=== PATIENT | female | born 1940 | race Caucasian/White ===

== ENCOUNTER 2016-09-20 15:01 | Inpatient (IN) | payer OTHER, MEDICARE ==
[~2016-09-20] VITALS: Ht 160 cm; Wt 70.5 kg
[2016-09-20 15:05] VITALS: BP_SYST 104
[2016-09-20 15:34] LABS: BASOPHILS % (AUTO) 0.3 % (0.0-2.0); EOSINOPHILS % (AUTO) 0.3 % (0.0-4.0); HEMATOCRIT 42.2 % (36-48); HEMOGLOBIN 13.9 g/dL (12.0-16.0); LYMPHOCYTES # (AUTO) 3.5 K/uL (1.0-5.5); LYMPHOCYTES % (AUTO) 26.9 % (20.5-51.5); MEAN CORPUSCULAR HEMOGLOBIN 29 pg (27-31); MEAN CORPUSCULAR HGB CONC 33 % (32-36); MEAN CORPUSCULAR VOLUME 87 fL (79.0-98.0); MONOCYTES # (AUTO) 0.9 K/uL (0.0-1.0); MONOCYTES % (AUTO) 6.8 % (1.7-9.3); NEUTROPHILS # (AUTO) 8.7 K/uL (1.8-7.7); NEUTROPHILS % (AUTO) 65.7 % (40.0-70.0); PLATELET COUNT (AUTO) 123 K/uL (130-430); RED BLOOD CELL COUNT(AUTO) 4.84 MIL/uL (4.2-6.2); RED CELL DISTRIBUTION WIDTH 13.1 % (9.0-15.0); WHITE BLOOD COUNT (AUTO) 13.1 K/uL (4.8-10.8)
[2016-09-20 15:40] LABS: ANION GAP 10 (5-15); CALCIUM 8.8 mg/dL (8.4-11.0); CHLORIDE 105 mmol/L (98-107); CREATININE 1.12 mg/dL (0.55-1.30); GLUCOSE 129 mg/dL (70-99); POTASSIUM 3.8 mmol/L (3.5-5.1); SODIUM SERUM 141 mmol/L (136-145); UREA NITROGEN, BLOOD 30 mg/dL (8-21)
[2016-09-20 15:46] LABS: ALANINE AMINOTRANSFERASE 63 U/L (12-78); ALBUMIN 3.6 g/dL (3.4-4.8); ASPARTATE AMINOTRANSFERASE 36 U/L (10-37); CREATINE KINASE, TOTAL 72 U/L (26-192); TOTAL BILIRUBIN 0.6 mg/dL (0.0-1.0); TOTAL PROTEIN, SERUM 6.6 g/dL (6.4-8.3)
[2016-09-20 15:47] LABS: ACETAMINOPHEN < 1 ug/mL (1-30); SALICYLATE 1 mg/dL (3-30)
[2016-09-20 16:15] LABS: PROTHROMBIN TIME 10.4 SECS (9.5-12.5)
[2016-09-20 16:22] LABS: BILIRUBIN,URINE NEGATIVE (NEGATIVE); BLOOD, URINE NEGATIVE (NEGATIVE); CLARITY/URINE CLEAR (CLEAR); COLOR,URINE YELLOW (YELLOW); GLUCOSE,URINE NEGATIVE (NEGATIVE); KETONES,URINE NEGATIVE (NEGATIVE); LEUKOCYTE ESTERASE ,URINE NEGATIVE (NEGATIVE); NITRITE, URINE NEGATIVE (NEGATIVE); PROTEIN URINE NEGATIVE (NEGATIVE); UROBILINOGEN,URINE 0.2 (0.2-1.0)
[2016-09-20 16:33] LABS: BARBITURATE, URINE NEGATIVE (NEG <=200); BENZODIAZEPINE, URINE NEGATIVE (NEG <=150); CANNABINOID, URINE NEGATIVE (NEG <=50); COCAINE, URINE NEGATIVE (NEG <=150); METHAMPHETAMINES SCREEN,URINE NEGATIVE (NEG <=500); OPIATE, URINE NEGATIVE (NEG <=100); PHENCYCLIDINE SCREEN,URINE NEGATIVE (NEG <=25); UR TRICYCLIC ANTIDEPRESSANTS NEGATIVE (NEG <=300); URINE AMPHETAMINE NEGATIVE (NEG <=500); URINE METHADONE NEGATIVE (NEG <=200); URINE OXYCODONE SCREEN NEGATIVE (NEG <=100); URINE PROPOXYPHENE SCREEN NEGATIVE (NEG <=300)
[2016-09-20] MEDS ORDERED: ASPIRIN 81 MG TAB.CHEW PO ONE (18:00)
[2016-09-20 18:52] VITALS: BP_SYST 143
[2016-09-20] MEDS ORDERED: MULT PO (19:25)
[2016-09-20] MEDS ORDERED: METO25TA3 PO (19:25)
[2016-09-20] MEDS ORDERED: DULO60CA41 PO (19:25)
[2016-09-20] MEDS ORDERED: LISI10TA5 PO (19:25)
[2016-09-20] MEDS ORDERED: [UNRECOGNIZED DRUG - CODE] PO (19:25)
[2016-09-20] MEDS ORDERED: PRAV40TA PO (19:25)
[2016-09-20] MEDS ORDERED: PROP10DR2 EACH EYE (19:25)
[2016-09-20] MEDS ORDERED: LUTE20TA PO (19:25)
[2016-09-20] MEDS ORDERED: DONE10TA44 PO (19:25)
[2016-09-20 19:30] VITALS: BP_SYST 144
[2016-09-20] MEDS ORDERED: ATORVASTATIN 20 MG TABLET PO SCH (21:00)
[2016-09-20] MEDS: DONEPEZIL HCL 5 MG TABLET (ARICEPT) PO SCH (21:16)
[2016-09-20] MEDS ORDERED: KCL 20 mEq in 100 mL (PREMIX) 100 ML IV ONE (21:25)
[2016-09-20] MEDS: POTASSIUM CHLORIDE 10 MEQ in 0.45% NACL 1,000 ML IV SCH (21:49)
[2016-09-20] MEDS ORDERED: ACETAMINOPHEN 325 MG TABLET PO ONE (22:15)
[2016-09-20] MEDS ORDERED: ACETAMINOPHEN 325 MG TABLET PO PRN (22:45)
[2016-09-20 23:49] VITALS: BP_SYST 147
[2016-09-21 04:02] VITALS: BP_SYST 138
[2016-09-21 06:52] LABS: BASOPHILS % (AUTO) 0.2 % (0.0-2.0); EOSINOPHILS # (AUTO) 0.2 K/uL (0.0-0.4); EOSINOPHILS % (AUTO) 1.8 % (0.0-4.0); HEMATOCRIT 42.4 % (36-48); HEMOGLOBIN 14.1 g/dL (12.0-16.0); LYMPHOCYTES # (AUTO) 4.5 K/uL (1.0-5.5); LYMPHOCYTES % (AUTO) 40.1 % (20.5-51.5); MEAN CORPUSCULAR HEMOGLOBIN 29 pg (27-31); MEAN CORPUSCULAR HGB CONC 33 % (32-36); MEAN CORPUSCULAR VOLUME 88 fL (79.0-98.0); MONOCYTES % (AUTO) 8.5 % (1.7-9.3); NEUTROPHILS # (AUTO) 5.6 K/uL (1.8-7.7); NEUTROPHILS % (AUTO) 49.4 % (40.0-70.0); PLATELET COUNT (AUTO) 120 K/uL (130-430); RED BLOOD CELL COUNT(AUTO) 4.81 MIL/uL (4.2-6.2); RED CELL DISTRIBUTION WIDTH 12.8 % (9.0-15.0); WHITE BLOOD COUNT (AUTO) 11.3 K/uL (4.8-10.8)
[2016-09-21 07:12] LABS: ANION GAP 6 (5-15); CALCIUM 8.5 mg/dL (8.4-11.0); CHLORIDE 104 mmol/L (98-107); CHOLESTEROL 245 mg/dL (<200); CREATININE 1.03 mg/dL (0.55-1.30); GLUCOSE 113 mg/dL (70-99); HDL CHOLESTEROL 45 mg/dL (>55); LDL CHOLESTEROL 144 mg/dL (<100); POTASSIUM 4.1 mmol/L (3.5-5.1); SODIUM SERUM 139 mmol/L (136-145); THYROID STIMULATING HORMONE 1.97 uIu/mL (0.34-4.82); TRIGLYCERIDES 343 mg/dL (30-150); UREA NITROGEN, BLOOD 27 mg/dL (8-21)
[2016-09-21 07:56] VITALS: BP_SYST 141
[2016-09-21] MEDS: DULoxetine HCL 30 MG CAPSULE.DR (CYMBALTA) PO SCH (08:47)
[2016-09-21] MEDS: FAMOTIDINE 20 MG TABLET PO SCH (08:47)
[2016-09-21] MEDS: OLANZapine 2.5 MG TABLET PO SCH (08:48)
[2016-09-21] MEDS: LISINOPRIL 10 MG TABLET (PRINIVIL) PO SCH (08:48)
[2016-09-21] MEDS: METOPROLOL SUCCINATE 25 MG TAB.SR.24H (TOPROL XL) PO SCH (08:48)
[2016-09-21 12:00] VITALS: BP_SYST 124
[2016-09-21] MEDS ORDERED: ATORVASTATIN 20 MG TABLET PO ONE (12:30)
[2016-09-21] MEDS ORDERED: ASPIRIN 81 MG TABLET(ECOTRIN) PO ONE (12:30)
[2016-09-21] MEDS: POTASSIUM CHLORIDE 10 MEQ in 0.45% NACL 1,000 ML IV SCH ×2 (13:03→20:45)
[2016-09-21 16:14] VITALS: BP_SYST 116
[2016-09-21 19:37] VITALS: BP_SYST 122
[2016-09-21] MEDS: DONEPEZIL HCL 5 MG TABLET (ARICEPT) PO SCH (21:14)
[2016-09-22 00:14] VITALS: BP_SYST 131
[2016-09-22 03:57] VITALS: BP_SYST 125
[2016-09-22] MEDS: ASPIRIN 81 MG TABLET(ECOTRIN) PO SCH (08:19)
[2016-09-22] MEDS: LISINOPRIL 10 MG TABLET (PRINIVIL) PO SCH (08:20)
[2016-09-22] MEDS: DULoxetine HCL 30 MG CAPSULE.DR (CYMBALTA) PO SCH (08:20)
[2016-09-22] MEDS: ATORVASTATIN 20 MG TABLET PO SCH (08:20)
[2016-09-22] MEDS: METOPROLOL SUCCINATE 25 MG TAB.SR.24H (TOPROL XL) PO SCH (08:21)
[2016-09-22] MEDS: OLANZapine 2.5 MG TABLET PO SCH (08:21)
[2016-09-22] MEDS: FAMOTIDINE 20 MG TABLET PO SCH (08:21)
[2016-09-22] MEDS: POTASSIUM CHLORIDE 10 MEQ in 0.45% NACL 1,000 ML IV SCH (09:19)
[2016-09-22 11:09] LABS: FOLATE (FOLIC ACID) >20.0 ng/mL (>3.0)
[2016-09-22 12:00] VITALS: BP_SYST 130
[2016-09-22 16:00] VITALS: BP_SYST 106
[2016-09-22] MEDS: DONEPEZIL HCL 5 MG TABLET (ARICEPT) PO SCH (21:07)
[2016-09-22 23:44] VITALS: BP_SYST 137
[2016-09-23] MEDS: POTASSIUM CHLORIDE 10 MEQ in 0.45% NACL 1,000 ML IV SCH (03:13)
[2016-09-23 04:14] VITALS: BP_SYST 138
[2016-09-23 08:54] VITALS: BP_SYST 120
[2016-09-23] MEDS: ATORVASTATIN 20 MG TABLET PO SCH (09:42)
[2016-09-23] MEDS: ASPIRIN 81 MG TABLET(ECOTRIN) PO SCH (09:42)
[2016-09-23] MEDS: OLANZapine 2.5 MG TABLET PO SCH (09:43)
[2016-09-23] MEDS: FAMOTIDINE 20 MG TABLET PO SCH (09:43)
[2016-09-23] MEDS: LISINOPRIL 10 MG TABLET (PRINIVIL) PO SCH (09:43)
[2016-09-23] MEDS: METOPROLOL SUCCINATE 25 MG TAB.SR.24H (TOPROL XL) PO SCH (09:44)
[2016-09-23] MEDS: DULoxetine HCL 30 MG CAPSULE.DR (CYMBALTA) PO SCH (09:44)
[2016-09-23] MEDS ORDERED: BISACODYL 10 MG/SUPPOSITORY RC ONE (09:45)
[2016-09-23 13:20] VITALS: BP_SYST 134
[2016-09-23 16:27] VITALS: BP_SYST 129
[2016-09-23 17:16] VITALS: BP_SYST 129
[2016-09-23] MEDS ORDERED: DOCUSATE SODIUM 250 MG CAPSULE PO SCH (21:00)
== END 2016-09-23 17:07 | DRG 64 ==
LOC: SED 15:01 → STU 17:53 → SMU 09-21 16:28
PROVIDERS: ADMIT Internal Medicine; ATTEND Internal Medicine
DX: I63.9 Cerebral infarction, unspecified (principal); G93.41 Metabolic encephalopathy; E78.5 Hyperlipidemia, unspecified; I10 Essential (primary) hypertension; F03.90 Unspecified dementia, unspecified severity, without behavioral disturbance, psychotic disturbance, mood disturbance, and anxiety; E86.0 Dehydration; N28.9 Disorder of kidney and ureter, unspecified; D69.6 Thrombocytopenia, unspecified; Z79.899 Other long term (current) drug therapy; Z86.73 Personal history of transient ischemic attack (TIA), and cerebral infarction without residual deficits; Z88.0 Allergy status to penicillin; Z88.8 Allergy status to other drugs, medicaments and biological substances
CPT/HCPCS: 36415; 70450-TC; 70544; 70551; 71010; 80048; 80053; 80061; 80307; 81003; 82550-TC; 82607; 82746; 84443-TC; 84484; 85025; 85610-TC; 85730-TC; 92523; 93005; 93306; 93880; 97110-GP; 97116-GP; 97530-GP; 99285; G0480; G0481; J3480

== ENCOUNTER 2016-11-20 10:59 | Inpatient (IN) | payer OTHER, MEDICARE ==
[~2016-11-20] VITALS: Ht 157.5 cm; Wt 59.0 kg
[~2016-11-20 10:59] MED LIST: DONE10TA44 PO; DULO60CA41 PO; LISI10TA5 PO; LUTE20TA PO; METO25TA3 PO; MULT PO; PROP10DR2 EACH EYE; [UNRECOGNIZED DRUG - CODE] PO
[2016-11-20 11:00] VITALS: BP_SYST 138
[2016-11-20 11:41] LABS: BASOPHILS # (AUTO) 0.1 K/uL (0.0-0.2); BASOPHILS % (AUTO) 0.7 % (0.0-2.0); EOSINOPHILS # (AUTO) 0.4 K/uL (0.0-0.4); EOSINOPHILS % (AUTO) 3.7 % (0.0-4.0); HEMOGLOBIN 15.2 g/dL (12.0-16.0); LYMPHOCYTES # (AUTO) 3.6 K/uL (1.0-5.5); LYMPHOCYTES % (AUTO) 35.7 % (20.5-51.5); MEAN CORPUSCULAR HEMOGLOBIN 28 pg (27-31); MEAN CORPUSCULAR HGB CONC 32 % (32-36); MEAN CORPUSCULAR VOLUME 88 fL (79.0-98.0); MONOCYTES # (AUTO) 0.7 K/uL (0.0-1.0); MONOCYTES % (AUTO) 7.2 % (1.7-9.3); NEUTROPHILS # (AUTO) 5.3 K/uL (1.8-7.7); NEUTROPHILS % (AUTO) 52.7 % (40.0-70.0); PLATELET COUNT (AUTO) 93 K/uL (130-430); RED BLOOD CELL COUNT(AUTO) 5.37 MIL/uL (4.2-6.2); RED CELL DISTRIBUTION WIDTH 12.7 % (9.0-15.0); WHITE BLOOD COUNT (AUTO) 10.1 K/uL (4.8-10.8)
[2016-11-20 11:44] LABS: PROTHROMBIN TIME 10.4 SECS (9.5-12.5)
[2016-11-20 11:48] LABS: ANION GAP 8 (5-15); CALCIUM 9.9 mg/dL (8.4-11.0); CHLORIDE 101 mmol/L (98-107); CREATININE 1.17 mg/dL (0.55-1.30); GLUCOSE 107 mg/dL (70-99); POTASSIUM 3.9 mmol/L (3.5-5.1); SODIUM SERUM 139 mmol/L (136-145); UREA NITROGEN, BLOOD 19 mg/dL (8-21)
[2016-11-20 11:52] LABS: FREE T4 (FREE THYROXINE) 0.9 ng/dl (0.8-1.5)
[2016-11-20 11:57] LABS: ALANINE AMINOTRANSFERASE 45 U/L (12-78); ALBUMIN 4.4 g/dL (3.4-4.8); ASPARTATE AMINOTRANSFERASE 28 U/L (10-37); TOTAL BILIRUBIN 0.7 mg/dL (0.0-1.0)
[2016-11-20 12:00] LABS: ALCOHOL, BLOOD < 3 mg/dL (<10)
[2016-11-20 12:39] LABS: BILIRUBIN,URINE NEGATIVE (NEGATIVE); BLOOD, URINE NEGATIVE (NEGATIVE); CLARITY/URINE CLEAR (CLEAR); COLOR,URINE YELLOW (YELLOW); GLUCOSE,URINE NEGATIVE (NEGATIVE); KETONES,URINE NEGATIVE (NEGATIVE); LEUKOCYTE ESTERASE ,URINE TRACE (NEGATIVE); NITRITE, URINE NEGATIVE (NEGATIVE); PROTEIN URINE NEGATIVE (NEGATIVE); UROBILINOGEN,URINE 0.2 (0.2-1.0)
[2016-11-20 12:48] LABS: BACTERIA,URINE RARE /HPF (None Seen); RBC,URINE 0-3 /HPF (0-3); WBC,URINE 0-3 /HPF (0-3)
[2016-11-20 12:53] LABS: BARBITURATE, URINE NEGATIVE (NEG <=200); BENZODIAZEPINE, URINE NEGATIVE (NEG <=150); CANNABINOID, URINE NEGATIVE (NEG <=50); COCAINE, URINE NEGATIVE (NEG <=150); METHAMPHETAMINES SCREEN,URINE NEGATIVE (NEG <=500); OPIATE, URINE NEGATIVE (NEG <=100); PHENCYCLIDINE SCREEN,URINE NEGATIVE (NEG <=25); UR TRICYCLIC ANTIDEPRESSANTS NEGATIVE (NEG <=300); URINE AMPHETAMINE NEGATIVE (NEG <=500); URINE METHADONE NEGATIVE (NEG <=200); URINE OXYCODONE SCREEN NEGATIVE (NEG <=100); URINE PROPOXYPHENE SCREEN NEGATIVE (NEG <=300)
[2016-11-20] MEDS ORDERED: LEVOFLOXACIN 500 MG/D5W 100 ML IV ONE (13:30)
[2016-11-20] MEDS ORDERED: DIPHENHYDRAMINE INJ 50 MG/ML VIAL IVP ONE (13:30)
[2016-11-20] MEDS ORDERED: LORazepam 2 MG/ML VIAL (FOR ER USE) IVP ONE (13:30)
[2016-11-20] MEDS: cefTRIAXone 1 GM IVPB PREMIX 50 ML IV SCH (14:15)
[2016-11-20] MEDS ORDERED: DIPHENHYDRAMINE INJ 50 MG/ML VIAL ONE (17:15)
[2016-11-20 18:34] VITALS: BP_SYST 117
[2016-11-20] MEDS: TEARS ARTIFICIAL 15 ML DROPS EACH EYE SCH (21:00)
[2016-11-20] MEDS: DONEPEZIL HCL 5 MG TABLET (ARICEPT) PO SCH (21:17)
[2016-11-21 00:58] VITALS: BP_SYST 117
[2016-11-21 04:30] VITALS: BP_SYST 117
[2016-11-21 08:03] VITALS: BP_SYST 117
[2016-11-21 08:18] LABS: BASOPHILS # (AUTO) 0.1 K/uL (0.0-0.2); BASOPHILS % (AUTO) 1.1 % (0.0-2.0); EOSINOPHILS # (AUTO) 0.4 K/uL (0.0-0.4); EOSINOPHILS % (AUTO) 5.1 % (0.0-4.0); HEMATOCRIT 42.5 % (36-48); HEMOGLOBIN 14.3 g/dL (12.0-16.0); LYMPHOCYTES # (AUTO) 2.5 K/uL (1.0-5.5); LYMPHOCYTES % (AUTO) 34.1 % (20.5-51.5); MEAN CORPUSCULAR HEMOGLOBIN 29 pg (27-31); MEAN CORPUSCULAR HGB CONC 34 % (32-36); MEAN CORPUSCULAR VOLUME 86 fL (79.0-98.0); MONOCYTES # (AUTO) 0.5 K/uL (0.0-1.0); MONOCYTES % (AUTO) 7.1 % (1.7-9.3); NEUTROPHILS # (AUTO) 3.9 K/uL (1.8-7.7); NEUTROPHILS % (AUTO) 52.6 % (40.0-70.0); RED BLOOD CELL COUNT(AUTO) 4.95 MIL/uL (4.2-6.2)
[2016-11-21 08:20] LABS: ANION GAP 7 (5-15); CHLORIDE 103 mmol/L (98-107); CREATININE 0.99 mg/dL (0.55-1.30); GLUCOSE 125 mg/dL (70-99); POTASSIUM 4.1 mmol/L (3.5-5.1); SODIUM SERUM 139 mmol/L (136-145); UREA NITROGEN, BLOOD 17 mg/dL (8-21); WHITE BLOOD COUNT (AUTO) 7.4 K/uL (4.8-10.8)
[2016-11-21] MEDS: LISINOPRIL 10 MG TABLET (PRINIVIL) PO SCH (08:33)
[2016-11-21] MEDS: DULoxetine HCL 30 MG CAPSULE.DR (CYMBALTA) PO SCH (08:33)
[2016-11-21] MEDS: OLANZapine 2.5 MG TABLET PO SCH (08:33)
[2016-11-21] MEDS: METOPROLOL SUCCINATE 25 MG TAB.SR.24H (TOPROL XL) PO SCH (08:34)
[2016-11-21] MEDS: MULTIVITAMINS TAB 1 TABLET PO SCH (08:34)
[2016-11-21 08:35] LABS: THYROID STIMULATING HORMONE 2.32 uIu/mL (0.36-3.74)
[2016-11-21] MEDS ORDERED: NON-FORMULARY MEDICATION (Lutein 20 MG) PO SCH (09:00)
[2016-11-21] MEDS: TEARS ARTIFICIAL 15 ML DROPS EACH EYE SCH ×2 (09:00→21:00)
[2016-11-21 10:33] LABS: PLATELET COUNT (AUTO) 68 K/uL (130-430)
[2016-11-21 11:28] VITALS: BP_SYST 116
[2016-11-21] MEDS: cefTRIAXone 1 GM IVPB PREMIX 50 ML IV SCH (13:28)
[2016-11-21 16:01] VITALS: BP_SYST 109
[2016-11-21 19:53] VITALS: BP_SYST 98
[2016-11-21] MEDS: DONEPEZIL HCL 5 MG TABLET (ARICEPT) PO SCH (21:25)
[2016-11-22] VITALS (7 sets, daily range): BP systolic 100–134
[2016-11-22] MEDS: METOPROLOL SUCCINATE 25 MG TAB.SR.24H (TOPROL XL) PO SCH (08:25)
[2016-11-22] MEDS: DULoxetine HCL 30 MG CAPSULE.DR (CYMBALTA) PO SCH (08:26)
[2016-11-22] MEDS: MULTIVITAMINS TAB 1 TABLET PO SCH (08:26)
[2016-11-22] MEDS: OLANZapine 2.5 MG TABLET PO SCH (08:26)
[2016-11-22] MEDS: LISINOPRIL 10 MG TABLET (PRINIVIL) PO SCH (08:27)
[2016-11-22] MEDS: TEARS ARTIFICIAL 15 ML DROPS EACH EYE SCH (10:30)
[2016-11-22] MEDS: cefTRIAXone 1 GM IVPB PREMIX 50 ML IV SCH (13:59)
[2016-11-22] MEDS ORDERED: ACETAMINOPHEN 325 MG TABLET PO PRN (17:30)
== END 2016-11-22 22:45 | DRG 690 ==
LOC: SED 10:59 → SMU 13:29
PROVIDERS: ADMIT Internal Medicine; ATTEND Family Medicine
DX: N39.0 Urinary tract infection, site not specified (principal); F33.2 Major depressive disorder, recurrent severe without psychotic features; R45.851 Suicidal ideations; F03.90 Unspecified dementia, unspecified severity, without behavioral disturbance, psychotic disturbance, mood disturbance, and anxiety; F41.9 Anxiety disorder, unspecified; I10 Essential (primary) hypertension; E78.00 Pure hypercholesterolemia, unspecified; Z88.0 Allergy status to penicillin; Z88.2 Allergy status to sulfonamides; Z88.8 Allergy status to other drugs, medicaments and biological substances; Z86.73 Personal history of transient ischemic attack (TIA), and cerebral infarction without residual deficits; Z79.899 Other long term (current) drug therapy
CPT/HCPCS: 36415; 71010; 74000-TC; 80048; 80053; 80307; 81000-TC; 82140-TC; 83605; 83880; 84439; 84443-TC; 84484; 85025; 85610-TC; 87040-TC; 96365; 96375; 97116-GP; 99285; G0482; J0696; J1200; J1956; J2060; J7050

== ENCOUNTER 2017-01-24 14:50 | Emergency (ER) | payer OTHER, MEDICARE ==
[~2017-01-24] VITALS: Ht 167.6 cm; Wt 77.1 kg
[2017-01-24 14:50] VITALS: BP_SYST 124
[2017-01-24] MEDS ORDERED: traMADol HCL HCL 50 MG TABLET (ULTRAM) PO ONE (15:30)
[2017-01-24 18:31] VITALS: BP_SYST 146
== END 2017-01-24 18:30 | disposition home or self-care (01) ==
LOC: SED 14:50
DX: S93.492A Sprain of other ligament of left ankle, initial encounter (principal); S09.90XA Unspecified injury of head, initial encounter; I10 Essential (primary) hypertension; E78.00 Pure hypercholesterolemia, unspecified; Z86.73 Personal history of transient ischemic attack (TIA), and cerebral infarction without residual deficits; Z88.8 Allergy status to other drugs, medicaments and biological substances; W01.10XA Fall on same level from slipping, tripping and stumbling with subsequent striking against unspecified object, initial encounter; Y93.89 Activity, other specified; Y92.89 Other specified places as the place of occurrence of the external cause; Y99.8 Other external cause status
CPT/HCPCS: 70450-TC; 99284

== ENCOUNTER 2017-11-19 18:53 | Inpatient (IN) | payer OTHER, MEDICARE ==
[~2017-11-19] VITALS: Ht 154.9 cm; Wt 64.0 kg
[2017-11-19 18:53] VITALS: BP_SYST 116
[~2017-11-19 18:53] MED LIST changes: +ACET-2165 PO; +MAG-55 PO; +MEMA5TAB PO; +OLAN2.5T29 PO; -[UNRECOGNIZED DRUG - CODE] PO
[2017-11-19] MEDS ORDERED: MECLIZINE HCL 25 MG TABLET (ANITVERT) PO ONE (20:15)
[2017-11-19] MEDS ORDERED: NACL 0.9% 1,000 ML IV ONE (20:15)
[2017-11-19 20:51] LABS: BILIRUBIN,URINE NEGATIVE (NEGATIVE); BLOOD, URINE NEGATIVE (NEGATIVE); CLARITY/URINE SL HAZY (CLEAR); COLOR,URINE YELLOW (YELLOW); GLUCOSE,URINE NEGATIVE (NEGATIVE); KETONES,URINE NEGATIVE (NEGATIVE); LEUKOCYTE ESTERASE ,URINE 1+ (NEGATIVE); NITRITE, URINE NEGATIVE (NEGATIVE); PROTEIN URINE NEGATIVE (NEGATIVE); UROBILINOGEN,URINE 0.2 (0.2-1.0)
[2017-11-19 21:01] LABS: HEMATOCRIT 46.4 % (36-48); HEMOGLOBIN 15.6 g/dL (12.0-16.0); MEAN CORPUSCULAR HEMOGLOBIN 30 pg (27-31); MEAN CORPUSCULAR HGB CONC 34 % (32-36); MEAN CORPUSCULAR VOLUME 88 fL (79.0-98.0); RED BLOOD CELL COUNT(AUTO) 5.27 MIL/uL (4.2-6.2); WHITE BLOOD COUNT (AUTO) 8.1 K/uL (4.8-10.8)
[2017-11-19 21:10] LABS: RBC,URINE 0-3 /HPF (0-3)
[2017-11-19 21:11] LABS: BACTERIA,URINE FEW /HPF (None Seen); MUCUS,URINE None Seen /LPF (None Seen)
[2017-11-19 21:11] LABS: ANION GAP 11 (5-15); CALCIUM 9.8 mg/dL (8.4-11.0); CHLORIDE 102 mmol/L (98-107); CREATININE 1.11 mg/dL (0.55-1.30); GLUCOSE 132 mg/dL (70-99); POTASSIUM 4.2 mmol/L (3.5-5.1); SODIUM SERUM 140 mmol/L (136-145); UREA NITROGEN, BLOOD 23 mg/dL (8-21)
[2017-11-19 21:16] LABS: ALANINE AMINOTRANSFERASE 75 U/L (12-78); ALBUMIN 4.1 g/dL (3.4-4.8); ASPARTATE AMINOTRANSFERASE 45 U/L (10-37); TOTAL BILIRUBIN 0.4 mg/dL (0.0-1.0)
[2017-11-19 21:20] LABS: PLATELET COUNT (AUTO) 40 K/uL (130-430)
[2017-11-19 21:25] LABS: INR 0.9 (0.8-1.2); PROTHROMBIN TIME 9.4 SECS (9.5-12.5)
[2017-11-19 21:26] LABS: BAND % (MANUAL) 1 % (0-6); BASOPHILS % (MANUAL) 0 % (0-2); EOSINOPHILS % (MANUAL) 5 % (0-7); LYMPHOCYTES % (MANUAL) 54 % (20-46); MONOCYTES % (MANUAL) 9 % (0-11)
[2017-11-19] MEDS ORDERED: LEVOFLOXACIN 500 MG/D5W 100 ML IV ONE (21:45)
[2017-11-19] MEDS ORDERED: ACET-2634 PO (22:13)
[2017-11-19] MEDS ORDERED: METH1TAB35 PO (22:16)
[2017-11-19 22:37] VITALS: BP_SYST 120
[2017-11-20 01:00] VITALS: BP_SYST 125
[2017-11-20] MEDS: ACETAMINOPHEN 500 MG TABLET PO PRN (07:54)
[2017-11-20] MEDS ORDERED: NON-FORMULARY MEDICATION (Methenamine Hippurate 1 GM) PO SCH (09:00)
[2017-11-20] MEDS ORDERED: NON-FORMULARY MEDICATION (Lutein 20 MG) PO SCH (09:00)
[2017-11-20] MEDS: DULoxetine HCL 30 MG CAPSULE.DR (CYMBALTA) PO SCH (09:59)
[2017-11-20] MEDS: MEMANTINE HCL 5 MG TABLET PO SCH ×2 (10:00→21:34)
[2017-11-20] MEDS: MULTIVITAMINS TAB 1 TABLET PO SCH (10:00)
[2017-11-20] MEDS: OLANZapine 2.5 MG TABLET PO SCH (10:01)
[2017-11-20] MEDS: METOPROLOL SUCCINATE 25 MG TAB.SR.24H (TOPROL XL) PO SCH (10:01)
[2017-11-20] MEDS: LISINOPRIL 10 MG TABLET (PRINIVIL) PO SCH (10:02)
[2017-11-20 12:00] VITALS: BP_SYST 122
[2017-11-20 16:01] VITALS: BP_SYST 98
[2017-11-20] MEDS: methylPREDNISolone SOD SUCC/PF 62.5 MG/ML VIAL IVP SCH ×2 (18:13→21:35)
[2017-11-20 19:00] VITALS: BP_SYST 116
[2017-11-20 20:00] VITALS: BP_SYST 116
[2017-11-20] MEDS: LEVOFLOXACIN 250 MG/D5W 50 ML IV SCH (21:33)
[2017-11-20] MEDS: DONEPEZIL HCL 5 MG TABLET (ARICEPT) PO SCH (21:34)
[2017-11-21 00:25] VITALS: BP_SYST 130
[2017-11-21] MEDS: methylPREDNISolone SOD SUCC/PF 62.5 MG/ML VIAL IVP SCH ×3 (05:37→21:16)
[2017-11-21 06:25] LABS: BASOPHILS # (AUTO) 0.1 K/uL (0.0-0.2); BASOPHILS % (AUTO) 0.7 % (0.0-2.0); EOSINOPHILS % (AUTO) 0.2 % (0.0-4.0); HEMATOCRIT 44.9 % (36-48); HEMOGLOBIN 15.3 g/dL (12.0-16.0); LYMPHOCYTES # (AUTO) 1.6 K/uL (1.0-5.5); LYMPHOCYTES % (AUTO) 18.3 % (20.5-51.5); MEAN CORPUSCULAR HEMOGLOBIN 29 pg (27-31); MEAN CORPUSCULAR HGB CONC 34 % (32-36); MEAN CORPUSCULAR VOLUME 87 fL (79.0-98.0); MONOCYTES % (AUTO) 0.3 % (1.7-9.3); NEUTROPHILS % (AUTO) 80.5 % (40.0-70.0); RED BLOOD CELL COUNT(AUTO) 5.19 MIL/uL (4.2-6.2); RED CELL DISTRIBUTION WIDTH 12.8 % (9.0-15.0)
[2017-11-21 06:41] LABS: ANION GAP 12 (5-15); CALCIUM 9.3 mg/dL (8.4-11.0); CHLORIDE 102 mmol/L (98-107); CREATININE 1.13 mg/dL (0.55-1.30); GLUCOSE 239 mg/dL (70-99); SODIUM SERUM 135 mmol/L (136-145); UREA NITROGEN, BLOOD 19 mg/dL (8-21)
[2017-11-21 07:28] LABS: PLATELET COUNT (AUTO) 41 K/uL (130-430)
[2017-11-21 08:00] VITALS: BP_SYST 136
[2017-11-21 09:17] LABS: WHITE BLOOD COUNT (AUTO) 8.7 K/uL (4.8-10.8)
[2017-11-21] MEDS: DULoxetine HCL 30 MG CAPSULE.DR (CYMBALTA) PO SCH (10:47)
[2017-11-21] MEDS: OLANZapine 2.5 MG TABLET PO SCH (10:47)
[2017-11-21] MEDS: LISINOPRIL 10 MG TABLET (PRINIVIL) PO SCH (10:48)
[2017-11-21] MEDS: MULTIVITAMINS TAB 1 TABLET PO SCH (10:48)
[2017-11-21] MEDS: MEMANTINE HCL 5 MG TABLET PO SCH ×2 (10:48→21:16)
[2017-11-21] MEDS: METOPROLOL SUCCINATE 25 MG TAB.SR.24H (TOPROL XL) PO SCH (10:50)
[2017-11-21 12:00] VITALS: BP_SYST 132
[2017-11-21 16:00] VITALS: BP_SYST 118
[2017-11-21 20:07] VITALS: BP_SYST 119
[2017-11-21] MEDS: DONEPEZIL HCL 5 MG TABLET (ARICEPT) PO SCH (21:16)
[2017-11-21] MEDS: LEVOFLOXACIN 250 MG/D5W 50 ML IV SCH (21:16)
[2017-11-21 23:16] VITALS: BP_SYST 123
[2017-11-22] MEDS: methylPREDNISolone SOD SUCC/PF 62.5 MG/ML VIAL IVP SCH ×3 (06:00→22:24)
[2017-11-22 07:24] LABS: BASOPHILS % (AUTO) 0.2 % (0.0-2.0); EOSINOPHILS # (AUTO) 0.1 K/uL (0.0-0.4); EOSINOPHILS % (AUTO) 0.3 % (0.0-4.0); HEMATOCRIT 43.2 % (36-48); HEMOGLOBIN 14.6 g/dL (12.0-16.0); LYMPHOCYTES % (AUTO) 10.5 % (20.5-51.5); MEAN CORPUSCULAR HEMOGLOBIN 29 pg (27-31); MEAN CORPUSCULAR HGB CONC 34 % (32-36); MEAN CORPUSCULAR VOLUME 86 fL (79.0-98.0); MONOCYTES # (AUTO) 0.2 K/uL (0.0-1.0); NEUTROPHILS # (AUTO) 17.1 K/uL (1.8-7.7); PLATELET COUNT (AUTO) 75 K/uL (130-430); RED BLOOD CELL COUNT(AUTO) 5.02 MIL/uL (4.2-6.2); RED CELL DISTRIBUTION WIDTH 12.7 % (9.0-15.0); WHITE BLOOD COUNT (AUTO) 19.4 K/uL (4.8-10.8)
[2017-11-22] MEDS: DULoxetine HCL 30 MG CAPSULE.DR (CYMBALTA) PO SCH (08:05)
[2017-11-22] MEDS: OLANZapine 2.5 MG TABLET PO SCH (08:05)
[2017-11-22] MEDS: METOPROLOL SUCCINATE 25 MG TAB.SR.24H (TOPROL XL) PO SCH (08:06)
[2017-11-22] MEDS: MEMANTINE HCL 5 MG TABLET PO SCH ×2 (08:07→20:40)
[2017-11-22] MEDS: MULTIVITAMINS TAB 1 TABLET PO SCH (08:07)
[2017-11-22] MEDS: LISINOPRIL 10 MG TABLET (PRINIVIL) PO SCH (08:07)
[2017-11-22 08:10] VITALS: BP_SYST 159
[2017-11-22] MEDS ORDERED: GADOPENTETATE DIMEGLUMINE 15 ML VIAL IV ONE (11:21)
[2017-11-22 12:40] VITALS: BP_SYST 134
[2017-11-22 16:16] VITALS: BP_SYST 125
[2017-11-22 19:51] VITALS: BP_SYST 127
[2017-11-22] MEDS: DONEPEZIL HCL 5 MG TABLET (ARICEPT) PO SCH (20:40)
[2017-11-22] MEDS: LEVOFLOXACIN 250 MG/D5W 50 ML IV SCH (20:40)
[2017-11-22 23:52] VITALS: BP_SYST 113
[2017-11-23] MEDS: methylPREDNISolone SOD SUCC/PF 62.5 MG/ML VIAL IVP SCH (05:28)
[2017-11-23 06:17] LABS: BASOPHILS # (AUTO) 0.1 K/uL (0.0-0.2); BASOPHILS % (AUTO) 0.3 % (0.0-2.0); HEMATOCRIT 44.3 % (36-48); HEMOGLOBIN 14.9 g/dL (12.0-16.0); LYMPHOCYTES # (AUTO) 1.8 K/uL (1.0-5.5); MEAN CORPUSCULAR HEMOGLOBIN 29 pg (27-31); MEAN CORPUSCULAR HGB CONC 34 % (32-36); MEAN CORPUSCULAR VOLUME 88 fL (79.0-98.0); MONOCYTES # (AUTO) 0.3 K/uL (0.0-1.0); MONOCYTES % (AUTO) 1.9 % (1.7-9.3); NEUTROPHILS # (AUTO) 15.8 K/uL (1.8-7.7); NEUTROPHILS % (AUTO) 87.8 % (40.0-70.0); PLATELET COUNT (AUTO) 109 K/uL (130-430); RED BLOOD CELL COUNT(AUTO) 5.05 MIL/uL (4.2-6.2); RED CELL DISTRIBUTION WIDTH 12.9 % (9.0-15.0)
[2017-11-23 07:57] VITALS: BP_SYST 128
[2017-11-23] MEDS: MULTIVITAMINS TAB 1 TABLET PO SCH (08:34)
[2017-11-23] MEDS: DULoxetine HCL 30 MG CAPSULE.DR (CYMBALTA) PO SCH (08:34)
[2017-11-23] MEDS: OLANZapine 2.5 MG TABLET PO SCH (08:34)
[2017-11-23] MEDS: MEMANTINE HCL 5 MG TABLET PO SCH (08:34)
[2017-11-23] MEDS: METOPROLOL SUCCINATE 25 MG TAB.SR.24H (TOPROL XL) PO SCH (08:35)
[2017-11-23] MEDS: LISINOPRIL 10 MG TABLET (PRINIVIL) PO SCH (08:35)
[2017-11-23] MEDS ORDERED: ASPIRIN 81 MG TAB.CHEW PO ONE (12:00)
[2017-11-23] MEDS ORDERED: LEVOFLOXACIN 250 MG TABLET PO ONE (12:00)
[2017-11-23] MEDS: ACETAMINOPHEN 500 MG TABLET PO PRN (12:04)
[2017-11-23 12:30] VITALS: BP_SYST 133
[2017-11-23 13:55] VITALS: BP_SYST 120
[2017-11-24] MEDS ORDERED: PREDNISONE 20 MG TABLET PO SCH (08:00)
[2017-11-24] MEDS ORDERED: ASPIRIN 81 MG TAB.CHEW PO SCH (09:00)
== END 2017-11-23 14:35 | DRG 65 ==
LOC: SED 18:53 → SMU 22:26
PROVIDERS: ADMIT Internal Medicine; ATTEND Internal Medicine
DX: I63.9 Cerebral infarction, unspecified (principal); N39.0 Urinary tract infection, site not specified; D69.3 Immune thrombocytopenic purpura; C34.32 Malignant neoplasm of lower lobe, left bronchus or lung; H50.9 Unspecified strabismus; E78.5 Hyperlipidemia, unspecified; G62.9 Polyneuropathy, unspecified; M19.90 Unspecified osteoarthritis, unspecified site; F03.90 Unspecified dementia, unspecified severity, without behavioral disturbance, psychotic disturbance, mood disturbance, and anxiety; Z51.5 Encounter for palliative care; I10 Essential (primary) hypertension; Z88.0 Allergy status to penicillin; Z88.2 Allergy status to sulfonamides; Z88.8 Allergy status to other drugs, medicaments and biological substances; Z79.899 Other long term (current) drug therapy; Z86.73 Personal history of transient ischemic attack (TIA), and cerebral infarction without residual deficits; Z90.710 Acquired absence of both cervix and uterus
CPT/HCPCS: 36415; 70450-TC; 70553; 71045; 80048; 80053; 81000-TC; 83605; 84484; 85007; 85025; 85027; 85610-TC; 85730-TC; 87040-TC; 87081; 87086; 93005; 93880; 96361; 96365; 97110-GP; 97116-GP; 97530-GP; 99285; A9579; J1956; J2930; J8597

== ENCOUNTER 2018-01-01 06:34 | Emergency (ER) | payer OTHER, MEDICARE ==
[~2018-01-01] VITALS: Ht 157.5 cm; Wt 63.5 kg
[2018-01-01 06:34] VITALS: BP_SYST 133
[~2018-01-01 06:34] MED LIST changes: -ACET-2165 PO; +ACET-2634 PO; -MAG-55 PO; +METH1TAB35 PO; -PROP10DR2 EACH EYE
--- NOTE | 2018-01-01 06:34 | NUR ---
PATIENT ARRIVED BY ALS WITH MEDIC 64. DENIES CP/SOB AT THIS TIME. PER MEDICS PATIENT EPORTED SUDDEN ONSET OF SHORTNESS OF BREATH AT CARE HOME HOME. NO SIGNS OF DISTRESS AT THIS TIME. PLACED IN BED 1, ON MONITOR, IN GOWN, WRISTBAND ON.
--- NOTE | 2018-01-01 06:49 | NUR ---
PATIENT IS AWAKE, ALERT, ORIENTED TO SELF, SITUATION, PLACE. DENIES ANY SHORTNESS OF BREATH OR PAIN AT THIS TIME. NO SIGNS OF DISTRESS, LUNGS ARE CLEAR.
[2018-01-01] MEDS ORDERED: BUSP10TA3 PO (06:54)
[2018-01-01] MEDS ORDERED: MEMA10TA PO (06:55)
--- NOTE | 2018-01-01 07:08 | NUR ---
ER at bedside examining patient.
[2018-01-01] MEDS ORDERED: NACL 0.9% 1,000 ML IV ONE (07:19)
--- NOTE | 2018-01-01 07:42 | NUR ---
ER at bedside examining patient.
--- NOTE | 2018-01-01 07:44 | NUR ---
Hydration started on pt, tolerated well
--- NOTE | 2018-01-01 08:10 | NUR ---
X ray at bedside.
[2018-01-01 08:15] LABS: BASOPHILS # (AUTO) 0.1 K/uL (0.0-0.2); BASOPHILS % (AUTO) 1.2 % (0.0-2.0); EOSINOPHILS # (AUTO) 0.1 K/uL (0.0-0.4); HEMATOCRIT 45.6 % (36-48); HEMOGLOBIN 14.6 g/dL (12.0-16.0); LYMPHOCYTES # (AUTO) 2.7 K/uL (1.0-5.5); LYMPHOCYTES % (AUTO) 36.4 % (20.5-51.5); MEAN CORPUSCULAR HEMOGLOBIN 29 pg (27-31); MEAN CORPUSCULAR HGB CONC 32 % (32-36); MEAN CORPUSCULAR VOLUME 89 fL (79.0-98.0); MONOCYTES # (AUTO) 0.4 K/uL (0.0-1.0); NEUTROPHILS # (AUTO) 4.1 K/uL (1.8-7.7); NEUTROPHILS % (AUTO) 54.4 % (40.0-70.0); PLATELET COUNT (AUTO) 66 K/uL (130-430); RED BLOOD CELL COUNT(AUTO) 5.13 MIL/uL (4.2-6.2); WHITE BLOOD COUNT (AUTO) 7.4 K/uL (4.8-10.8)
[2018-01-01 08:29] LABS: ANION GAP 9 (5-15); CALCIUM 9.4 mg/dL (8.4-11.0); CHLORIDE 104 mmol/L (98-107); CREATININE 1.04 mg/dL (0.55-1.30); GLUCOSE 148 mg/dL (70-99); POTASSIUM 4.4 mmol/L (3.5-5.1); SODIUM SERUM 140 mmol/L (136-145); UREA NITROGEN, BLOOD 19 mg/dL (8-21)
[2018-01-01 08:33] LABS: ALANINE AMINOTRANSFERASE 67 U/L (12-78); ALBUMIN 3.9 g/dL (3.4-4.8); ASPARTATE AMINOTRANSFERASE 32 U/L (10-37); TOTAL BILIRUBIN 0.7 mg/dL (0.0-1.0)
--- NOTE | 2018-01-01 09:38 | NUR ---
Spoke to granddaughter Patricia and informed her of sending the pt back to [facility].
[2018-01-01 10:31] VITALS: BP_SYST 117
--- NOTE | 2018-01-01 10:31 | NUR ---
Patient given written and verbal discharge instructions and verbalizes understanding. ER MD discussed with patient the results and treatment provided. Patient in stable condition. ID arm band removed. IV catheter removed intact and dressing applied, no active bleeding. No Rx given. Patient educated on pain management and to follow up with PMD. Pain Scale 0. Opportunity for questions provided and answered.
--- NOTE | 2018-01-01 10:35 | NUR ---
Relocation Coordinator from [facility] is here to pick pt up, pt was wheeled to car.
== END 2018-01-01 10:31 | disposition home or self-care (01) ==
LOC: SED 06:34
DX: R53.1 Weakness (principal); I10 Essential (primary) hypertension; E78.5 Hyperlipidemia, unspecified; M19.90 Unspecified osteoarthritis, unspecified site; Z86.79 Personal history of other diseases of the circulatory system; Z85.118 Personal history of other malignant neoplasm of bronchus and lung; Z88.0 Allergy status to penicillin; Z88.2 Allergy status to sulfonamides; Z79.899 Other long term (current) drug therapy; Z88.8 Allergy status to other drugs, medicaments and biological substances; Z90.710 Acquired absence of both cervix and uterus
CPT/HCPCS: 36415; 36600; 71045; 80053; 82803; 83605; 84484; 85025; 85379; 87040; 93005; 99285; J7030

== ENCOUNTER 2018-10-06 12:17 | Emergency (ER) | payer OTHER, MEDICARE ==
[~2018-10-06 12:17] MED LIST changes: +BUSP10TA3 PO; +MEMA10TA PO; -MEMA5TAB PO
[2018-10-06 12:20] VITALS: BP_SYST 134
--- NOTE | 2018-10-06 12:25 | NUR ---
Patient KATHYRito from [facility] for ALOC. Patient is usually verbal but was found to be non-verbal. Patient follows commands. Patient has PMH of neuropathy, hyperlipidemia, lung cancer, and OA. Patient has allergies to penicillin, sulfa, and simvastatin. Skin pink/warm/dry and respirations even and unlabored. No signs or symptoms of acute distress noted.
--- NOTE | 2018-10-06 12:30 | NUR ---
ER Dr. Hastings at bedside examining patient.
--- NOTE | 2018-10-06 13:05 | NUR ---
Patient transported to radiology via hospital bed, accompanied by electronic security technician.
[2018-10-06 13:08] LABS: BASOPHILS # (AUTO) 0.1 K/uL (0.0-0.2); BASOPHILS % (AUTO) 0.6 % (0.0-2.0); EOSINOPHILS # (AUTO) 0.1 K/uL (0.0-0.4); EOSINOPHILS % (AUTO) 1.7 % (0.0-4.0); HEMATOCRIT 45.6 % (36-48); HEMOGLOBIN 15.6 g/dL (12.0-16.0); LYMPHOCYTES # (AUTO) 3.5 K/uL (1.0-5.5); LYMPHOCYTES % (AUTO) 39.6 % (20.5-51.5); MEAN CORPUSCULAR HEMOGLOBIN 30 pg (27-31); MEAN CORPUSCULAR HGB CONC 34 % (32-36); MEAN CORPUSCULAR VOLUME 88 fL (79.0-98.0); MONOCYTES # (AUTO) 0.5 K/uL (0.0-1.0); MONOCYTES % (AUTO) 5.9 % (1.7-9.3); NEUTROPHILS # (AUTO) 4.6 K/uL (1.8-7.7); NEUTROPHILS % (AUTO) 52.2 % (40.0-70.0); RED BLOOD CELL COUNT(AUTO) 5.16 MIL/uL (4.2-6.2); RED CELL DISTRIBUTION WIDTH 13.5 % (9.0-15.0); WHITE BLOOD COUNT (AUTO) 8.8 K/uL (4.8-10.8)
[2018-10-06 13:16] LABS: ANION GAP 10 (5-15); CALCIUM 10.2 mg/dL (8.4-11.0); CHLORIDE 105 mmol/L (98-107); GLUCOSE 125 mg/dL (70-99); SODIUM SERUM 142 mmol/L (136-145); UREA NITROGEN, BLOOD 30 mg/dL (8-21)
--- NOTE | 2018-10-06 13:21 | NUR ---
Returns to ER department from radiology. Placed on cardiac rehab nurse, blood pressure machine and pulse oximeter.
[2018-10-06 13:22] LABS: PLATELET COUNT (AUTO) 27 K/uL (130-430)
[2018-10-06 13:25] LABS: ALANINE AMINOTRANSFERASE 65 U/L (12-78); ALBUMIN 3.9 g/dL (3.4-4.8); ASPARTATE AMINOTRANSFERASE 37 U/L (10-37); TOTAL BILIRUBIN 0.4 mg/dL (0.0-1.0)
[2018-10-06 15:06] LABS: BILIRUBIN,URINE NEGATIVE (NEGATIVE); CLARITY/URINE HAZY (CLEAR); COLOR,URINE YELLOW (YELLOW); GLUCOSE,URINE NEGATIVE (NEGATIVE); KETONES,URINE TRACE (NEGATIVE); LEUKOCYTE ESTERASE ,URINE 1+ (NEGATIVE); NITRITE, URINE NEGATIVE (NEGATIVE); PH,URINE 5.5 (5.0-8.0); PROTEIN URINE TRACE (NEGATIVE); UROBILINOGEN,URINE 0.2 (0.2-1.0)
[2018-10-06 15:08] LABS: BLOOD, URINE TRACE (NEGATIVE)
[2018-10-06 15:19] LABS: BACTERIA,URINE MANY /HPF (None Seen); MUCUS,URINE None Seen /LPF (None Seen); RBC,URINE 0-3 /HPF (0-3)
--- NOTE | 2018-10-06 15:21 | NUR ---
Patient resting in bed, arousable to voice and touch. No signs or symptoms of acute distress noted.
--- NOTE | 2018-10-06 17:29 | NUR ---
Endorsed report over phone to Brisa PRINCE from [facility] for continuation of care.
[2018-10-06 17:30] VITALS: BP_SYST 143
--- NOTE | 2018-10-06 17:32 | NUR ---
Patient given written and verbal discharge instructions and verbalizes understanding. ER Dr. Hastings discussed with patient the results and treatment provided. Patient in stable condition. ID arm band removed. IV catheter removed intact and dressing applied, no active bleeding. Rx of Cipro given. Patient educated on pain management and to follow up with PMD. Pain Scale 0/10. Opportunity for questions provided and answered. Medication side effect fact sheet provided. Patient being transferred back to [facility].
[2018-10-06] MEDS ORDERED: CRAN450C PO (21:10)
[2018-10-06] MEDS ORDERED: LOPE2CAP PO (21:12)
[2018-10-06] MEDS ORDERED: LORA-258 PO (21:13)
[2018-10-06] MEDS ORDERED: ESCI10TA PO (21:14)
[2018-10-06] MEDS ORDERED: MOM PO (21:14)
[2018-10-06] MEDS ORDERED: PROP10DR2 EACH EYE (21:15)
[2018-10-06] MEDS ORDERED: CALMO120 TP (21:17)
== END 2018-10-06 17:32 ==
LOC: SED 12:17
DX: F03.90 Unspecified dementia, unspecified severity, without behavioral disturbance, psychotic disturbance, mood disturbance, and anxiety (principal); N39.0 Urinary tract infection, site not specified; E78.5 Hyperlipidemia, unspecified; I10 Essential (primary) hypertension; Z86.79 Personal history of other diseases of the circulatory system; Z85.118 Personal history of other malignant neoplasm of bronchus and lung; Z88.0 Allergy status to penicillin; Z88.2 Allergy status to sulfonamides; Z88.8 Allergy status to other drugs, medicaments and biological substances; Z79.899 Other long term (current) drug therapy
CPT/HCPCS: 36415; 70450; 71045; 80053; 81000; 84484; 85025; 87086; 93005; 99284; J7040